=== PATIENT | female | born 1975 | race Caucasian/White ===

== ENCOUNTER 2024-07-19 12:50 | Outpatient (CLI) | payer OTHER, SELFPAY ==
--- NOTE | 2024-07-19 13:00 | ECG_ITS ---
Test Date: 2024-07-19 13:21:22 Measurements Intervals [place] Rate: 73 P: 80 CA: 132 QRS: 2 QRSD: 101 T: 9 QT: 354 QTc: 392 Interpretive Statements SINUS RHYTHM POOR R-WAVE PROGRESSION NONSPECIFIC T-WAVE ABNORMALITY ABNORMAL ECG No previous ECG available for comparison Electronically Signed On 07-19-2024 15:04:31 CUSTOMER SUPPORT AGENT by Hussein Bentley M.D.
[2024-07-19 14:22] LABS: Anion Gap 6 mmol/L (4-12); Blood Urea Nitrogen 17 mg/dL (7-17); Calcium 9.2 mg/dL (8.4-10.2); Carbon Dioxide 35 mmol/L (22-30); Chloride 100 mmol/L (98-107); Estimated Glomerular Filt Rate > 60; Glucose 85 mg/dL (65-110); Potassium 3.4 mmol/L (3.4-5.0); Sodium 141 mmol/L (137-145)
== END 2024-07-19 12:51 | disposition home or self-care (01) ==
LOC: ANHSURGERY 12:55
PROVIDERS: Anesthesiology; PCP Family Medicine; Visit Provider Urology
DX: N23 Unspecified renal colic (principal); E11.9 Type 2 diabetes mellitus without complications; I10 Essential (primary) hypertension
CPT/HCPCS: 36415; 80048; 87086; 93005

== ENCOUNTER 2024-07-19 13:52 | Outpatient (CLI) | payer OTHER, SELFPAY ==
--- NOTE | ~2024-07-19 | XR_ITS ---
XR abdomen/kub 1V Ordering provider: Zahida Munoz APRN History: . CALCIUM KIDNEY STONE RT SIDE, SCHEDULED FOR STENT PLACEMENT . Comparison: None. FINDINGS: BOWEL: Nonobstructive bowel gas pattern. ORGANOMEGALY: None. SIGNIFICANT PATHOLOGIC CALCIFICATIONS: 20 mm Stone in the right kidney lower pole. OTHER: No free air is seen under the diaphragm. Bilateral mild to moderate hip osteoarthritic changes . IMPRESSION: NO ACUTE ABDOMINAL FINDINGS. Right kidney stone. Reviewed, dictated and finalized at location A. TAL INSPECTOR
== END 2024-07-19 13:53 | disposition home or self-care (01) ==
PROVIDERS: PCP Family Medicine; Visit Provider Nurse Practitioner
DX: N20.0 Calculus of kidney (principal)
CPT/HCPCS: 74018

== ENCOUNTER 2024-07-25 01:22 | Day surgery (SDC) | payer OTHER, SELFPAY ==
[2024-05-05 13:23] VITALS: BMI 45.6
--- NOTE | 2024-05-05 13:24 | PC.NURSE ---
Report to the Outpatient Waiting Room, entrance under the green pavilion located off [facility], at time _0730_ on date 05-09-2024_. Planned Procedure Time: _0930_.? Time changes happen often and if your time is changed the preop area will call you the afternoon before. - You and your visitor will be asked to self-screen and do not enter if you have any COVID symptoms. Please call surgeon if you need to reschedule. - A mask is optional within the hospital at this time. Patients may have clear liquids (water, carbonated beverages, clear teas, apple juice) until 3 hours prior to surgery with a maximum of 20 ounces. - No food from midnight until time of surgery and no smoking Take only the following medications with a SIP of water on the morning of surgery: ___Levothyroxine, Oxycodone, and Pregabalin DO NOT STOP ANY OF YOUR OTHER PRESCRIPTION MEDICATIONS PRIOR TO SURGERY EXCEPT THE FOLLOWING Medications to discontinue per physician ___Presurvision and [id number]___ Date to take last egtn___[id number] Please no make-up, nail mauritian, hairspray, perfume, deodorant, or body powder the day of surgery.? No jewelry (including any body piercings) or valuables the day of surgery, leave them at home.? Please take a shower or bath the night before, or the morning of, surgery with an antibacterial soap.? Wear comfortable, loose fitting clothing.? - Jewelry must be removed prior to entering the operating room.? Rings and piercings that are not removed may be cut off. - The hospital will not accept responsibility for valuables.? - Please leave all valuables, including medications, at home the day of surgery. If you are going home after surgery, a licensed roll off driver must drive you home.? - NO public transportation without another adult if you receive anesthesia. - We recommend that an adult stay with you for 24 hours following discharge. - We also recommend that you do not drive, make important decision, drink alcoholic beverages, or take any drugs that were not prescribed by your health care provider for at least 24 hours after your discharge time. Follow any additional instructions given to you from your surgeon. Telephone instructions given to ___Amy___and asked if any additional questions and then verbalized understanding. Patient advised to call surgeon office or pre surgery nurse liaison [phone] if any additional questions.
--- NOTE | 2024-07-18 13:13 | PC.NURSE ---
Patient instructed to be her 07-25-2024 at 0815 for surgery at 1015. Also reviewed previous instructions.
[2024-07-25] VITALS (7 sets, daily range): BP systolic 119–168; BP diastolic 67–91; PULSE 68–102; RESP 14–20; TEMP 36.4–36.6; O2SAT 96–100; BMI 44.9
--- NOTE | ~2024-07-25 | XR_ITS ---
EXAMINATION: XR retrograde pyelo w/stent RT DATE: 07/25/2024 10:50 COMPONENT DESIGN ENGINEER INDICATION: RIGHT STENT/RETRO . TECHNIQUE: 3 fluoroscopic images of the abdomen and pelvis were obtained during right retrograde pyel ography with stent placement, performed by Alden Farias MD. I was not present during the pr ocedure. Fluoroscopy exposure time was 26.9 seconds. Air Kerma 20.51 mGy. DAP 0.35295 mGym2. COMPARISON: X-ray abdomen 07/19/2024 FINDINGS/IMPRESSION: Fluoroscopic documentation of right retrograde pyelography with stent placement. Please refer to the operative note for complete procedural details . Reviewed, dictated and finalized at location K. ONENT DESIGN ENGINEER
[2024-07-25 08:59] LABS: Glucose Point of Care 125 mg/dl (65-105)
[2024-07-25] MEDS: LACTATED RINGERS 1,000 ML 30 ML IV CONT (09:20)
--- NOTE | 2024-07-25 10:06 | PM.IMHP ---
H&P: HPI History of Present Illness Date/Time: 07/25/24 10:06 Chief Complaint: For right renal stone 12-20 mm Narrative: 41-year-old female who was found to have a right renal calculus measuring 12 mm up to 20 mm on a different KUB. Her body habitus precludes lithotripsy at this time. She is now here for cystoscopy right retrograde right stent placement possible ureteroscopy with laser of stone. Review of Systems Review of Systems: All systems reviewed & are unremarkable except as noted in HPI and below PMFSH Family History Family History Other Diabetes mellitus Family history of mental disorder Hypertension Social History Social History Smoking status: Never smoker Alcohol intake: never Substance use type: marijuana Other substance usage details: gummies every once in awhile Living arrangements: with family Spiritual care concerns: No Meds Home Medications and Allergies Home Medications ?Medication ?Instructions ?Recorded ?Confirmed ?Type Lactobacillus 40-Bifidobact 1 cap PO DAILY 05/05/24 07/18/24 History 3-S.thermophilus 100 billion cell capsule (Probiotic) atorvastatin 10 mg tablet 10 mg PO HS 05/05/24 07/18/24 History coenzyme Q10 100 mg capsule 100 mg PO DAILY 05/05/24 07/18/24 History (CoQ-10) dulaglutide 0.75 mg/0.5 mL 0.75 mg subcut WEEKLY 05/05/24 07/18/24 History subcutaneous pen injector (Trulicity) glipizide 5 mg tablet 5 mg PO BID 05/05/24 07/18/24 History hydrochlorothiazide 25 mg tablet 25 mg PO DAILY 05/05/24 07/18/24 History levothyroxine 137 mcg tablet 137 mcg PO DAILY 05/05/24 07/18/24 History lisinopril 2.5 mg tablet 2.5 mg PO HS 05/05/24 07/18/24 History oxycodone 5 mg tablet 5 mg PO QID PRN Pain 05/05/24 07/18/24 History pregabalin 300 mg capsule 300 mg PO TID 05/05/24 07/18/24 History tizanidine 4 mg tablet 4 mg PO TID 05/05/24 07/18/24 History vitamins A,C,W-ejqg-hlpkhc 2,148 2 tablet PO BID 05/05/24 07/18/24 History mcg-113 mg-45 mg-17.4 mg tablet (PreserVision AREDS) Allergies Allergy/AdvReac Type Severity Reaction Status Date / Time No Known Allergies Allergy Verified 07/18/24 10:18 Exam Const: General: cooperative Resp: Effort & Inspection: normal respiratory effort Cardio: Rate: regular rate Rhythm: regular rhythm Assessment and Plan Assessment and plan (1) Right renal stone: Code(s): N20.0 - Calculus of kidney Status: Acute Assessment and Plan: Proceed with cystoscopy, right retrograde pyelogram, right ureteroscopy with holmium laser, stent placement.
--- NOTE | 2024-07-25 10:09 | WPDHPUPDATE1 ---
History and Physical Update Update Date/Time: 07/25/24 10:09 History and Physical has been reviewed, including an updated exam of the patient. There are NO changes in the patient's condition. Risks, benefits, and alternatives have been discussed and questions answered. Patient agrees to proceed with procedure.
--- NOTE | 2024-07-25 10:20 | WPDANESEPP ---
Anes - Eval Pre Procedure Procedure: Operation Date: 07/25/24 10:15 Proposed Procedures p Cystoscopy, Right Ureteroscopy, Possible Right Retrograde Pyelogram, Possible Right Stone Extraction, Possible Right Stent Placement, Possible Holmium Laser Procedure - Alden Farias MD Date/Time: 07/25/24 10:20 Pre Op Diagnosis: right renal kidney stone Patient Data Age: 49 Gender: F Height: 1.75 m Weight: 140 kg Allergies Allergy/AdvReac Type Severity Reaction Status Date / Time No Known Allergies Allergy Verified 07/25/24 10:19 Home Medications ?Medication ?Instructions ?Recorded ?Confirmed ?Type Lactobacillus 40-Bifidobact 1 cap PO DAILY 05/05/24 07/25/24 History 3-S.thermophilus 100 billion cell capsule (Probiotic) atorvastatin 10 mg tablet 10 mg PO HS 05/05/24 07/18/24 History coenzyme Q10 100 mg capsule 100 mg PO DAILY 05/05/24 07/25/24 History (CoQ-10) dulaglutide 0.75 mg/0.5 mL 0.75 mg subcut WEEKLY 05/05/24 07/18/24 History subcutaneous pen injector (Trulicity) glipizide 5 mg tablet 5 mg PO BID 05/05/24 07/18/24 History hydrochlorothiazide 25 mg tablet 25 mg PO DAILY 05/05/24 07/25/24 History levothyroxine 137 mcg tablet 137 mcg PO DAILY 05/05/24 07/25/24 History lisinopril 2.5 mg tablet 2.5 mg PO HS 05/05/24 07/18/24 History oxycodone 5 mg tablet 5 mg PO QID PRN Pain 05/05/24 07/18/24 History pregabalin 300 mg capsule 300 mg PO TID 05/05/24 07/25/24 History tizanidine 4 mg tablet 4 mg PO TID 05/05/24 07/18/24 History vitamins A,C,M-afzi-qicmtx 2,148 2 tablet PO BID 05/05/24 07/25/24 History mcg-113 mg-45 mg-17.4 mg tablet (PreserVision AREDS) Laboratory Tests 07/25/24 08:57 POC Capillary Glucose 125 H mg/dl (65-105) Patient hx anesthesia problems: none Family hx anesthesia problems: none Results Review: All pre-operative results and documents have been reviewed as part of the pre-operative evaluation. [facility] Past Medical History Medical History Lumbago Hypothyroidism Migraines Morbid obesity Acute anxiety Diabetes Right renal stone Family History Family History Other Diabetes mellitus Family history of mental disorder Hypertension Social History Social History Smoking status: Never smoker Alcohol intake: never Substance use type: marijuana Other substance usage details: gummies every once in awhile Living arrangements: with family Spiritual care concerns: No Exam Day of Procedure 07/25/24 10:20 Patient weight: morbidly obese Heart: regular rate and rhythm Lungs: clear to auscultation Airway: Mallampati scale class II Neurological: alert and oriented
--- NOTE | 2024-07-25 10:23 | P.PNAN_ITS ---
Anes - Eval Final PreProcedure Day of Procedure 07/25/24 10:23 Patient weight: morbidly obese Heart: regular rate and rhythm Lungs: clear to auscultation Airway: Mallampati scale class II Neurological: alert and oriented Last oral intake: >/= 8 hours ASA classification: III Emergent: no Anesthetic plan: proceed Anesthesia type and monitoring: general LMA and standard monitoring Results Review: All pre-operative results and documents have been reviewed as part of the pre- operative evaluation. Informed Consent: The patient's anesthetic plan and its attendant risks and benefits were discussed with the patient/family/POA. Questions were solicited and answers provided to the satisfaction of the patient/family/POA.
[2024-07-25] MEDS: ceFAZolin 3 GM/D5W 100 ML 100 ML IVPB (10:29)
[2024-07-25] MEDS: LIDOCAINE HCL 2% GEL UROJET 10 ML PKG MUCOUS MEM (11:00)
--- NOTE | 2024-07-25 11:15 | W.PM.PROC2 ---
Procedure Note - Detailed Date of Procedure 07/25/24 Pre-op Diagnosis right renal kidney stone 1.5-2 cm Post-op Diagnosis Same Procedure Performed Cystoscopy, right retrograde, right ureteroscopy with holmium laser, right ureteral stent placement 4.8 Egyptian contour Surgeon Alden Farias MD Anesthesia General Description of Procedure Patient was taken to the operative suite correctly identified. Once anesthesia was obtained she was placed in dorsal lithotomy position and prepped draped usual sterile fashion. Nineteen Egyptian scope was inserted the bladder. There were no tumors noted. Right ureteral orifice was cannulated with a guidewire. Ureteral access sheath was inserted. Mini flexible scope was passed in the kidney. She had a small stone in the upper pole. Using a 200 micron fiber we dusted the stone. We then turned our attention to the larger stone in the lower pole. Again used a 200 micron fiber on dust mode we were able to fragment and dust the stone. It broke up easily. There were no significantly large stones left. At this point time pyelogram was performed to confirm placement of the stent. 4.8 Egyptian contour stent was then placed with the proximal end coiled in the renal pelvis and the distal in the bladder. 2% viscous lidocaine was inserted into the urethra. Patient is taken recovery stable condition. She will follow-up in a week's time for stent removal. This completes dictation. Please send a copy of op note to my office. Estimated Blood Loss 0 Drains Yes Packing No Pathology None sent Complications No immediate complications Condition Stable Disposition PACU
[2024-07-25 11:31] LABS: Glucose Point of Care 113 mg/dl (65-105)
[2024-07-25] MEDS: fentaNYL CITRATE INJ (*CRX) 100 MCG/2 ML VIAL 25 MCG IV PUSH ×2 (11:36→11:39)
[2024-07-25] MEDS: KETOROLAC 30 MG/ML VIAL (*BKC) IV PUSH (12:03)
[2024-07-25] MEDS: HYOSCYAMINE SULFATE 0.125 MG TABLET PO (12:03)
[2024-07-25] MEDS: oxyCODONE HCL (*CRX) 5 MG TAB IR PO (12:21)
== END 2024-07-25 12:59 | disposition home or self-care (01) ==
PROVIDERS: PCP Family Medicine; Visit Provider Urology
PROC: (CPT 52352; principal; 2024-07-25 10:15)
DX: N20.0 Calculus of kidney (principal); E03.9 Hypothyroidism, unspecified; F41.9 Anxiety disorder, unspecified; E11.9 Type 2 diabetes mellitus without complications; F12.90 Cannabis use, unspecified, uncomplicated; E66.01 Morbid (severe) obesity due to excess calories; Z68.41 Body mass index [BMI] 40.0-44.9, adult; Z79.85 Long-term (current) use of injectable non-insulin antidiabetic drugs; Z79.84 Long term (current) use of oral hypoglycemic drugs; Z79.891 Long term (current) use of opiate analgesic
CPT/HCPCS: 52356; 74420; 82948; A9270; C1769; C1894; C2617; J0690; J1100; J1885; J2003; J2250; J2405; J2704; J3010; J7120; Q9966

== ENCOUNTER 2024-07-27 10:13 | Emergency (ER) | payer OTHER, SELFPAY ==
[2024-07-27 10:15] VITALS: BP 149/77; PULSE 74; RESP 20; TEMP 36.7; O2SAT 98
[2024-07-27 10:27] VITALS: PULSE 74; RESP 14; TEMP 37; O2SAT 95
[2024-07-27 10:40] LABS: Add Urine Microscopic? YES; Appearance Urine Cloudy (Clear); Bilirubin Urine Negative (Negative); Blood Urine 3+ (Negative); Color Urine Yellow (Yellow); Glucose Urine UA Negative (Negative); Ketones Urine Negative (Negative); Leukocyte Esterase Ur 3+ LEU/UL (Negative); Nitrate Urine Negative (Negative); Protein Urine 2+ mg/dL (Negative); Specific Grav Ur 1.008 (1.001-1.035); Urobilinogen Urine 0.2 mg/dL (<2.0); pH Urine 6.5 (5.0-9.0)
[2024-07-27 11:03] LABS: RBC Urine 21-50 /hpf (0-2)
[2024-07-27 11:04] LABS: Bacteria Urine 1+ /hpf
[2024-07-27 11:04] LABS: Basophils Absolute Auto 0.1 K/mm3 (0.0-0.1); Basophils Percent Auto 0.5 % (0.2-1.2); Eosinophils Absolute Auto 0.5 K/mm3 (0-0.3); Eosinophils Percent Auto 4.8 % (0-4.4); Hematocrit 39.9 % (37.0-47.0); Immature Granulocyte Absolute 0.05 K/mm3 (0.00-0.031); Immature Granulocyte Percent A 0.5 % (0-0.5); Lymphocytes Absolute Auto 1.76 K/mm3 (0.9-3.2); Lymphocytes Percent Auto 18.7 % (18.3-44.2); Mean Corpuscular HGB Conc 32.6 g/dl (32-36); Mean Platelet Volume 9.9 fl (7.4-10.4); Monocytes Absolute Auto 0.9 K/mm3 (0.1-0.6); Neutrophils Absolute Auto 6.3 K/mm3 (1.3-6.7); Neutrophils Percent Auto 66.5 % (45.5-73.1); Platelet Count Result 272 k/mm3 (150-375); Red Blood Count 4.64 M/mm3 (4.2-5.4); Red Cell Distribution Width 13.7 % (11.5-14.5); White Blood Count 9.4 K/mm3 (4.5-10.0)
[2024-07-27 11:10] LABS: Anion Gap 6 mmol/L (4-12); Blood Urea Nitrogen 16 mg/dL (7-17); Calcium 8.9 mg/dL (8.4-10.2); Carbon Dioxide 29 mmol/L (22-30); Chloride 104 mmol/L (98-107); Estimated CRCL calculation 128 ml/min; Estimated Glomerular Filt Rate > 60; Glucose 123 mg/dL (65-110); Potassium 3.6 mmol/L (3.4-5.0); Sodium 139 mmol/L (137-145)
--- NOTE | 2024-07-27 11:14 | ED_ITS ---
HPI - General Adult General Chief complaint: Fever Stated complaint: fevers, stent placed Wednesday Time Seen by Provider: 07/27/24 10:31 History of Present Illness HPI narrative: Patient seen by urologist 2 days ago, had lithotripsy and ureteral stent placed, with UTI/stones, yesterday had noticed some blood in her urine, fever, and suprapubic spasms, called her urologist office who told her to come to the ER. Currently on last day of Bactrim. Related Data Home Medications ?Medication ?Instructions ?Recorded ?Confirmed ?Last Taken ?Type Lactobacillus 40-Bifidobact 1 cap PO DAILY 05/05/24 07/25/24 07/18/24 History 3-S.thermophilus 100 billion cell capsule (Probiotic) atorvastatin 10 mg tablet 10 mg PO HS 05/05/24 07/18/24 Unknown History coenzyme Q10 100 mg capsule 100 mg PO DAILY 05/05/24 07/25/24 07/18/24 History (CoQ-10) dulaglutide 0.75 mg/0.5 mL 0.75 mg subcut WEEKLY 05/05/24 07/18/24 Unknown History subcutaneous pen injector (Trulicity) glipizide 5 mg tablet 5 mg PO BID 05/05/24 07/18/24 Unknown History hydrochlorothiazide 25 mg tablet 25 mg PO DAILY 05/05/24 07/25/24 07/25/24 History levothyroxine 137 mcg tablet 137 mcg PO DAILY 05/05/24 07/25/24 07/25/24 History lisinopril 2.5 mg tablet 2.5 mg PO HS 05/05/24 07/18/24 Unknown History oxycodone 5 mg tablet 5 mg PO QID PRN Pain 05/05/24 07/18/24 Unknown History pregabalin 300 mg capsule 300 mg PO TID 05/05/24 07/25/24 07/25/24 History tizanidine 4 mg tablet 4 mg PO TID 05/05/24 07/18/24 Unknown History vitamins A,C,J-pagt-nmxvfq 2,148 2 tablet PO BID 05/05/24 07/25/24 07/18/24 History mcg-113 mg-45 mg-17.4 mg tablet (PreserVision AREDS) Allergies Allergy/AdvReac Type Severity Reaction Status Date / Time No Known Allergies Allergy Verified 07/27/24 10:19 Review of Systems 2 Review of Systems: All systems reviewed & are unremarkable except as noted in HPI and below PMFSH Past Medical History Medical History Lumbago Hypothyroidism Migraines Morbid obesity Acute anxiety Diabetes Right renal stone Family History Family History Other Diabetes mellitus Family history of mental disorder Hypertension Social History Social History Smoking status: Never smoker Alcohol intake: never Substance use type: marijuana Other substance usage details: gummies every once in awhile Living arrangements: with family Spiritual care concerns: No Exam 2 Narrative: EXAMINATION OF ORGAN SYSTEMS/BODY AREAS: Constitutional: Vital signs per nursing GENERAL:[No acute distress, non-toxic appearing.] HEAD: Normal with no signs of head trauma. EYES: EOMI, conjunctiva normal ENT: Hearing grossly intact LUNGS: Nonlabored breathing. HEART: [Regular rate and rhythm] ABD: [Soft], Minimally tender to palpation suprapubic abdomen EXT: Normal range of motion SKIN: [No rashes or lesions.] NEURO: [Alert and oriented x 3. No gross focal sensory or strength deficits.] PSYCH: Normal affect Course Vital Signs Vital signs: Vital Signs Temperature 98.1 F 07/27/24 10:15 Pulse Rate 74 07/27/24 10:15 Respiratory Rate 20 07/27/24 10:15 Blood Pressure 149/77 H 07/27/24 10:15 Pulse Oximetry 98 07/27/24 10:15 Oxygen Delivery Room Air 07/27/24 10:15 Temperature 98.8 F 07/27/24 12:14 Pulse Rate 64 07/27/24 12:14 Respiratory Rate 15 07/27/24 12:14 Blood Pressure 129/75 07/27/24 12:14 Pulse Oximetry 96 07/27/24 12:14 Oxygen Delivery Room Air 07/27/24 10:15 Medical Decision Making MDM Narrative Medical decision making narrative: Patient seen by urologist 2 days ago, had lithotripsy and ureteral stent placed, with UTI/stones, yesterday had noticed some blood in her urine, fever, and suprapubic spasms, called her urologist office who told her to come to the ER. she is very well-appearing here, normal vital signs, abdomen soft without significant tenderness, urine does have some WBCs, leukocytes, bacteria, discussed with her urologist Dr Farias, he requested starting her on oxybutynin and ciprofloxacin and having her follow-up in the clinic. Patient agreeable to this plan. Return precautions provided. Vital Signs Vital Signs: Vital Signs Temperature 98.1 F 07/27/24 10:15 Pulse Rate 74 07/27/24 10:15 Respiratory Rate 20 07/27/24 10:15 Blood Pressure 149/77 H 07/27/24 10:15 Pulse Oximetry 98 07/27/24 10:15 Oxygen Delivery Room Air 07/27/24 10:15 Temperature 98.8 F 07/27/24 12:14 Pulse Rate 64 07/27/24 12:14 Respiratory Rate 15 07/27/24 12:14 Blood Pressure 129/75 07/27/24 12:14 Pulse Oximetry 96 07/27/24 12:14 Oxygen Delivery Room Air 07/27/24 10:15 Lab Data 07/27/24 10:47 07/27/24 10:47 Labs: Lab Results 07/27/24 07/27/24 Range/Units 10:27 10:47 WBC 9.4 (4.5-10.0) K/mm3 RBC 4.64 (4.2-5.4) M/mm3 Hgb 13.0 (12.0-15.0) g/dL Hct 39.9 (37.0-47.0) % MCV 86.0 (80-100) fl MCH 28.0 (26-34) pg MCHC 32.6 (32-36) g/dl RDW 13.7 (11.5-14.5) % Plt Count 272 (150-375) k/mm3 MPV 9.9 (7.4-10.4) fl Immature Gran % (Auto) 0.5 (0-0.5) % Neut % (Auto) 66.5 (45.5-73.1) % Lymph % (Auto) 18.7 (18.3-44.2) % [place] % (Auto) 9.0 H (2.6-8.5) % Eos % (Auto) 4.8 H (0-4.4) % Baso % (Auto) 0.5 (0.2-1.2) % Lymph # (Auto) 1.76 (0.9-3.2) K/mm3 [place] # (Auto) 0.9 H (0.1-0.6) K/mm3 Eos # (Auto) 0.5 H (0-0.3) K/mm3 Baso # (Auto) 0.1 (0.0-0.1) K/mm3 Abs Immat Gran (auto) 0.05 H (0.00-0.031) K/mm3 Absolute Neuts (auto) 6.3 (1.3-6.7) K/mm3 Absolute Nucleated RBC 0.000 (0.0-0.012) K/mm3 Nucleated RBC % 0.0 (0.0-0.2) % Sodium 139 (137-145) mmol/L Potassium 3.6 (3.4-5.0) mmol/L Chloride 104 (98-107) mmol/L Carbon Dioxide 29 (22-30) mmol/L Anion Gap 6 (4-12) mmol/L BUN 16 (7-17) mg/dL Creatinine 0.70 (0.7-1.0) mg/dL Estim Creat Clear Calc 128 ml/min Estimated GFR > 60 (59 - ) Glucose 123 H (65-110) mg/dL Calcium 8.9 (8.4-10.2) mg/dL Urine Color Yellow (Yellow) Urine Appearance Cloudy H (Clear) Urine pH 6.5 (5.0-9.0) Ur Specific [place] 1.008 (1.001-1.035) Urine Protein 2+ H (Negative) mg/dL Urine Glucose (UA) Negative (Negative) mg/dL Urine Ketones Negative (Negative) mg/dL Ur Blood (Man) 3+ H (Negative) Urine Nitrate Negative (Negative) Urine Bilirubin Negative (Negative) Urine Urobilinogen 0.2 (<2.0) mg/dL Leukocyte Esterase Rfl 3+ H (Negative) ERIC/UL Urine RBC 21-50 H (0-2) /hpf Urine WBC 4-6 H (0-3) /hpf Urine Bacteria 1+ /hpf Discharge Plan Discharge Clinical Impression: UTI (urinary tract infection) Patient Disposition: Home, Self-Care Condition: Stable Instructions: Antibiotic Form, Urinary Tract Infection in Women (ED) Additional Instructions: Please take the antibiotics and new medications as prescribed and follow-up with your urologist in the next few days. If symptoms return or worsen, you can always return to the ER. Patient Language: Telugu Prescriptions: New oxybutynin chloride 5 mg tablet 5 mg PO BID PRN (Reason: bladder spasms) Qty: 20 0RF ciprofloxacin HCl 500 mg tablet 500 mg PO Q12H Qty: 14 0RF No Action levothyroxine 137 mcg tablet 137 mcg PO DAILY atorvastatin 10 mg tablet 10 mg PO HS tizanidine 4 mg tablet 4 mg PO TID hydrochlorothiazide 25 mg tablet 25 mg PO DAILY lisinopril 2.5 mg tablet 2.5 mg PO HS glipizide 5 mg tablet 5 mg PO BID Rx Instructions: 1 tab in am, 2 tabs at supper. oxycodone 5 mg tablet 5 mg PO QID PRN (Reason: Pain) coenzyme Q10 [CoQ-10] 100 mg Capsule 100 mg PO DAILY pregabalin 300 mg capsule 300 mg PO TID PreserVision AREDS 2,148 mcg-113 mg-45 mg-17.4mg Tablet 2 tablet PO BID Rx Instructions: administer with AM and PM meals Trulicity 0.75 mg/0.5 mL pen injector 0.75 mg SUBCUT WEEKLY Rx Instructions: Wednesday. Probiotic 100 billion cell Capsule 1 cap PO DAILY sulfamethoxazole-trimethoprim [Bactrim DS] 800-160 mg tablet 1 tablet PO Q12H Qty: 6 0RF oxybutynin chloride 5 mg tablet 5 mg PO BID PRN (Reason: bladder spasms) Qty: 30 0RF Rx Instructions: Take as needed for bladder spasms Follow-up/Referrals: Alden Farias MD [Physician] - 2 Days Manoj,MD Caridad [Primary Care Provider] -
[2024-07-27 12:14] VITALS: BP 129/75; PULSE 64; RESP 15; TEMP 37.1; O2SAT 96
[2024-07-27] MEDS: CIPROFLOXACIN 500 MG TAB PO (12:50)
== END 2024-07-27 12:54 | disposition home or self-care (01) ==
PROVIDERS: Emergency Provider Emergency Medicine; PCP Family Medicine
DX: N39.0 Urinary tract infection, site not specified (principal); E03.9 Hypothyroidism, unspecified; E11.9 Type 2 diabetes mellitus without complications; E66.01 Morbid (severe) obesity due to excess calories; Z68.42 Body mass index [BMI] 45.0-49.9, adult
CPT/HCPCS: 36415; 80048; 81001; 85025; 87086; 99283; A9270